=== PATIENT | male | born 1985 | race Hispanic/Latino ===

== ENCOUNTER 2023-12-01 15:45 | Emergency (ER) | payer SELFPAY ==
[2023-12-01 15:51] VITALS: BP 128/82
[2023-12-01 16:13] LABS: % Basophils 0.2 % (0-2); % Eosinophils 0.2 % (0-6); % Immature Granulocytes 0.3 % (0-0.5); % Lymphocytes 15.3 % (20.5-51.1); % Monocytes 5.9 % (1.7-9.3); % Neutrophils 78.1 % (42.2-75.2); Absolute Lymphocytes 1.5 10^3/uL (1.2-3.4); Absolute Monocytes 0.6 10^3/uL (0.1-0.6); Absolute Neutrophils 7.8 10^3/uL (1.4-6.5); Hematocrit 46.3 % (39.0-52.0); Hemoglobin 16.6 g/dL (13.0-18.0); Mean Corp Hgb Conc. 35.9 g/dL (33.0-37.0); Mean Corpuscular Hgb 30.2 pg (27.0-31.0); Mean Corpuscular Volume 84.3 fL (80.0-94.0); Mean Platelet Volume 8.8 fL (7.4-10.4); Nucleated Red Blood Cells % 0 % (-); Platelet Count 230 10^3/uL (130-400); Red Blood Cell Count 5.49 10^6/uL (4.70-6.10); Red Cell Dist. Width 12.5 % (11.5-14.5)
[2023-12-01 16:28] LABS: ALT (SGPT) 27 U/L (0-50); AST (SGOT) 22 U/L (17-59); Albumin 4.4 g/dl (3.5-5.0); Alkaline Phosphatase 70 U/L (38-126); Blood Urea Nitrogen 16 mg/dl (9-20); Calcium 9.2 mg/dl (8.4-10.2); Carbon Dioxide 25 mmol/L (22-30); Chloride 102 mmol/L (98-107); Glucose 109 mg/dl (70-99); Lipase 77 U/L (23-300); Sodium 136 mmol/L (135-145); Total Bilirubin 1.6 mg/dl (0.2-1.3); Total Protein 7.6 g/dl (6.3-8.2); eGFR > 60.00
[2023-12-01 16:37] LABS: Troponin I < 0.012 ng/ml
--- NOTE | 2023-12-01 18:22 | ED.GENMED ---
History of Present Illness
General
Chief Complaint: Chest Pain
Source: patient
Time Seen by Provider: 12/01/23 17:38
Travel History
Have you had any contact with someone who has COVID-19?: No
Do you have any symptoms of coronavirus? Fever > 100 degrees, chills, cough, shortness of breath, sore throat, loss of taste or smell, muscle aches, or headache?: No
History of Present Illness
History of Present Illness:
This patient is a 38-year-old male who is primarily Lao-speaking. He does not have a primary care physician and often does not seek medical care. He denies taking any medications. He states that he has had a variety of symptoms for many weeks
to months. However, he got concerned today because as he was walking he started to feel very nauseous associated with generalized weakness and lightheadedness. He denies at that time chest pain or pressure, dyspnea, abdominal pain, or other
complaints. Symptoms are fully resolved now. However, in the past few weeks, patient describes 'stomach symptoms'. He says that every time he eats he starts to feel nauseous and a sense of burning in his chest.. He denies vomiting, weight loss,
fever, chills, sweat, abdominal pain, back pain, urinary symptoms. His bowel movements are normal without black stool or blood. He also notes for many months that has had intermittent discomfort in the back of his head and neck. This is not
associated with numbness, tingling, change in vision, change in balance/vertigo, etc.
Past History
Past History
ED Past Medical History: None
ED Past Surgical History: None
Social History
Tobacco: Former smoker
Alcohol: Former
Drug: None
Personal: Single
Living: with family
Phy Exam
Physical Exam
Physical Exam:
GENERAL: Alert , in no apparent distress
EYE: pupils equal and reactive
NECK: Supple, no significant adenopathy.
ENT: o/p clr, mmm.
CARDIAC: Regular rate and rhythm .
LUNGS: Clear breath sounds bilaterally, no acute respiratory distress, no wheezes/rales/rhonchi
ABDOMEN: Soft, without focal tenderness, no r/g, no cvat
NEUROLOGICAL: Alert and oriented, no focal neuro deficits
SKIN: Warm and dry, skin intact.
MUSCULOSKELETAL: No edema, well perfused.
PSYCH: Normal and appropriate interaction.
Scores
Heart Score for Chest Pain Patients
STEMI patient?: Not applicable
Course
Orders/Labs/Results
Orders:
Orders
12/01/23 15:56
Electrocardiogram (*1) Urgent
Reason for Study: Chest Pain
EKG- Treatment ONCE
12/01/23 16:03
Complete Blood Count/With Diff Urgent
Comprehensive Metabolic Panel Urgent
Lipase Urgent
Troponin I Urgent
12/01/23 18:21
CXR2 [CR Chest - 2 Views ] Stat
Comment:
Reason For Exam: cp
Abnormal Lab Results
12/01/23
16:03
Absolute Neuts (auto) 7.8 H 10^3/uL
(1.4-6.5)
Neutrophils % 78.1 H %
(42.2-75.2)
Lymphocytes % 15.3 L %
(20.5-51.1)
Glucose 109 H mg/dl
(70-99)
Total Bilirubin 1.6 H mg/dl
(0.2-1.3)
12/01/23 16:03
12/01/23 16:03
Vital Signs
Initial and Last Documented VS:
Initial Vital Signs
Temp Pulse Resp BP Pulse Ox
99.2 F 105 18 128/82 99
12/01/23 15:51 12/01/23 15:51 12/01/23 15:51 12/01/23 15:51 12/01/23 15:51
Last Documented Vital Signs
Temp Pulse Resp BP Pulse Ox
99.2 F 105 18 128/82 99
12/01/23 15:51 12/01/23 15:51 12/01/23 15:51 12/01/23 15:51 12/01/23 15:51
*Critical Care Note
Total Time (30-74mins, 75-104mins- exclusive of procedures): Not Applicable
Update Note
Update Note:
Patient presents to the Emergency Department with
Number and Complexity of Problems Addressed at the Encounter
� Chronic conditions affecting care:
� Acute Exacerbation and/or Progression of Chronic Illness:
� Differential Diagnosis includes:
Amount and/or Complexity of Data to be Reviewed and Analyzed
� I performed an independent evaluation of and my interpretation is:
EKG: Read by me, normal sinus rhythm, incomplete RBBB, no acute ischemia
CT:
Xrays:CXR read by me, nad
Laboratory Studies:generally unremarkable
Other:
� Review of other/old records reveals:
� Clinical information was obtained by an independent historian: History communication assisted by language line
� Prescriptions/Medications Considered but not given:
� Further testing considered but not performed:
Risk of Complications and/or Morbidity or Mortality of Patient Management
� Social determinants of health affecting care:
� Discussion with other providers (PCP, Hospitalists, Consultants, etc):
� Escalation of care including admission/observation vs risk of discharge considered: ECG generally unremarkable, history and physical not consistent with ACS, PE, dissection� Workup unremarkable thus far. Patient with many
complaints some of which have been subacute/chronic in nature. Will need close follow-up. I confirm with patient that he is willing to do so, is uninsured, and is a [facility] resident, therefore he is a candidate for the [facility] which
I will refer him to. Discussed with patient importance of follow-up and reasons to return to the ER. His symptoms may be related to reflux/gastritis. Will encourage OTC antacids in the meantime.
ED Attending Note
-
Portions of this chart may have been created with voice recognition software.� Occasional wrong word or��sound alike� substitutions may have occurred due to the inherent limitations of voice recognition software.
Discharge Plan
Departure
Patient Disposition: Home (Routine Discharge)
Date of Disposition: 12/01/23
Time of Disposition: 19:52
Patient with high blood pressure during this ER visit?: Yes
Condition: Good
Discharge Problem:
Chest pain
Instructions: Acid Reflux and GERD in Adults (DC), Chest Pain PCP Follow Up, BLOOD PRESSURE
Referrals:
[facility] [[facility] - Next open appointment
NONE,* [Family Provider] -
Activity Restrictions/Additional Instructions:
IF YOU DEVELOP INCREASING/NEW PAIN, TROUBLE BREATHING, FEVER, VOMITING, DIZZINESS, OR OTHER WORRISOME SIGNS, GO TO THE ER IMMEDIATELY!
Interventions
Interventions:
*Risk Screen - Suicide Last Done: 12/01/23 18:37
*General Assessment Last Done: 12/01/23 18:37
*Neglect/Abuse Screening Last Done: 12/01/23 18:37
ED- Fall Risk Assessment Last Done: 12/01/23 20:14
*ED COVID-19 Vaccine History Last Done: 12/01/23 18:36
*Nursing Disposition Last Done: 12/01/23 20:14
ED- Cardiac Assessment Last Done: 12/01/23 18:35
Discharge Date and Time
Discharge Date/Time: 12/01/23 20:39
Print Language: AFGHAN
[2023-12-01 18:34] VITALS: BMI 27.6
== END 2023-12-01 20:39 | disposition home or self-care (01) ==
LOC: EMR 15:45
PROVIDERS: Emergency Medicine; EMERGENCY PHYSICIAN Emergency Medicine
DX: R07.89 Other chest pain (principal); Z87.891 Personal history of nicotine dependence
CPT/HCPCS: 99283; 71046; 80053; 83690; 84484; 85025; 93005